=== PATIENT | male | born 1985 | race Caucasian/White ===

== ENCOUNTER 2023-12-27 04:03 | Day surgery (SDC) | payer OTHER ==
[2023-12-27] VITALS (213 sets, daily range): BP systolic 86–147; BP diastolic 43–99
[~2023-12-27] VITALS: Ht 175.3 cm; Wt 89.0 kg
--- NOTE | 2023-12-27 07:00 | NUR ---
Arrival & Pre-treatment Patient arrived to the [facility]R suite, identification and demographics confirmed. Patient to room 8, AAO, ambulatory, vitals obtained, ID/allergy/fall bands placed, changed into hospital gown, ROBERT hose, and non-slip socks. Procedure and timeline explained for treatment and discharge. All questions answered and the patient presents no concerns at this time.
[2023-12-27] MEDS ORDERED: LACTATED RINGER'S 1,000 ML IV PRN ×3 (07:30→19:00)
[2023-12-27] MEDS ORDERED: FAMOTIDINE 20 MG/TAB PO PRN (07:30)
[2023-12-27] MEDS ORDERED: ALBUTEROL SULFATE 2.5 MG VIAL IN PRN (07:30)
[2023-12-27] MEDS ORDERED: SCOPOLAMINE 1.5 MG DIS TD PRN (07:30)
[2023-12-27] MEDS ORDERED: CYANOCOBALAMIN 500 MCG/TAB ( B12) PO PRN (07:30)
[2023-12-27] MEDS ORDERED: cloNIDine HCL 0.1 MG/TAB PO PRN (07:30)
[2023-12-27] MEDS ORDERED: PANTOPRAZOLE SODIUM Sesquihydr 40 MG/TAB PO PRN (07:30)
[2023-12-27] MEDS ORDERED: diazePAM 5 MG/TAB PO PRN ×2 (07:30→08:30)
--- NOTE | 2023-12-27 07:45 | NUR ---
telephoned with patient intake information including usage, dose, last dose/time taken and initial vital signs. Patient history and allergies reviewed with MD. Orders received for 5+ 5 PRN mg PO Valium and 0.1 mg PO Clonidine now. Will reassess per protocol in 1.5 hours and update MD with assessment and vitals. Patient medicated per MD orders. In addition to Clonidine and Valium, patient received 1000 mcg B12 PO, 20 mg Pepcid PO, and Scopolamine TD patch. Medication indication and education provided prior to administration.
[2023-12-27] MEDS ORDERED: ASCORBIC ACID 4,000 MG in SODIUM CHLORIDE 0.9% 1,000 ML IV SCH (08:00)
[2023-12-27 08:44] LABS: BASO% 0.7 % (0-3); EOS% 5.7 % (0-8); HEMATOCRIT 47.6 % (39.0-50.0); HEMOGLOBIN 17.1 g/dl (14.0-18.0); IMMATURE GRANULOCYTES 0.5 % (0.0-5.0); LYMPH% 40.8 % (15-41); MEAN CORPUSCULAR HGB 30.5 pG CALC (26.0-32.0); MEAN CORPUSCULAR HGB CONC 35.9 g/dL CAL (32.0-36.0); MONO% 9.9 % (2-13); NEUT# 2.47 thou/uL (1.82-7.42); NEUT% 42.4 % (42-76); RED BLOOD COUNT 5.6 mill/uL (4.70-6.10); RED CELL DISTRI WIDTH 12.3 % (11.5-15.5)
[2023-12-27 08:58] LABS: ALBUMIN 4.3 g/dL (3.2-5.0); BILIRUBIN, TOTAL 0.6 mg/dL (0.2-1.3); CREATININE 0.9 mg/dL (0.7-1.3); POTASSIUM 4.6 mmol/l (3.5-5.1); TOTAL PROTEIN 7.3 g/dL (6.3-8.2)
[2023-12-27] MEDS ORDERED: ADVAIR DISK1 (09:08)
[2023-12-27] MEDS ORDERED: OMEPRAZOLE DR40 MG (09:09)
[2023-12-27] MEDS ORDERED: ADDERALL10 MG PO (09:09)
[2023-12-27] MEDS ORDERED: PROVENTIL0.083 % IN (09:10)
[2023-12-27] MEDS ORDERED: HYDROXYZ HCL10 MG PO (09:13)
[2023-12-27] MEDS ORDERED: ROCURONIUM BROMIDE 10 MG/ML 5ML VIAL IV PRN (09:25)
[2023-12-27] MEDS ORDERED: cloNIDine HCL 0.1 MG/TAB VT PRN (09:25)
[2023-12-27] MEDS ORDERED: DiphenhydrAMINE HCL 50 MG/ML SDV IV PRN (09:25)
[2023-12-27] MEDS ORDERED: MIDAZOLAM HCL 2 MG/2 ML VIAL IV PRN (09:25)
[2023-12-27] MEDS ORDERED: diazePAM 5 MG/TAB VT PRN (09:25)
[2023-12-27] MEDS ORDERED: MAGNESIUM SULFATE HEPTAHYDRATE 100 ML IV PRN (09:25)
[2023-12-27] MEDS ORDERED: ONDANSETRON HCl 4 MG/2 ML SDV IV PRN ×3 (09:25→19:00)
[2023-12-27] MEDS ORDERED: PROPOFOL 100 ML IV PRN (09:25)
[2023-12-27] MEDS ORDERED: cloNIDine HYDROCHLORIDE 100 MCG/ML 10 ML INJ IV PRN (09:25)
[2023-12-27] MEDS ORDERED: OCTREOTIDE ACETATE 100 MCG/VIAL SDV SC PRN (09:25)
[2023-12-27] MEDS ORDERED: LIDOCAINE HCL 1% (10MG/ML) 100 MG/10 ML MDV VT PRN ×2 (09:25)
[2023-12-27] MEDS ORDERED: STERILE WATER FOR IRRIGATION 1,000 ML BTL IR PRN (09:25)
[2023-12-27] MEDS ORDERED: DEXAMETHASONE SODIUM PHOSPHATE PF 10 MG/ML SDV IV PRN ×2 (09:25→19:00)
[2023-12-27] MEDS ORDERED: LIDOCAINE HCL 1% (10MG/ML) 100 MG/10 ML MDV IV PRN (09:25)
[2023-12-27] MEDS ORDERED: NALTREXONE HCL 50 MG/TAB VT PRN (09:25)
[2023-12-27] MEDS ORDERED: PROPOFOL 10 MG/ML 100ML VIAL IV PRN (09:25)
[2023-12-27] MEDS ORDERED: THIAMINE HCL 100 MG/ML 2ML VIAL IV PRN (09:25)
[2023-12-27] MEDS ORDERED: SUCCINYLCHOLINE CHLORIDE 20 MG/ML 10ML VIAL IV PRN (09:25)
--- NOTE | 2023-12-27 09:38 | NUR ---
Patients vital signs within pre-treatment parameters for 1.5 hour recheck. No indication for additional Valium or Clonidine as patient is resting comfortably and vital signs are within range.
--- NOTE | 2023-12-27 10:30 | NUR ---
Patient resting comfortably in bed. Easily aroused, maintains focus, and drifts back to sleep. No signs of active withdrawal or distress noted at this time. Continuous SPO2, rhythm, and respiratory monitoring initiated. IVF @ 250 mL/HR, room air, VSS.
--- NOTE | 2023-12-27 11:05 | NUR ---
Induction Note Patient to ANR procedure room. Time out performed at 1105. Patient placed on monitors, Douglas hugger, bilateral wrist restraints applied for ET tube protection. Versed 5mg given IV push at 1112 Tourniquet applied to RIGHT arm Lidocaine 100mg given [id number] IV push followed by Rocoronium 10mg at 1114 IV push and held for 90 seconds. Propofol bolus of 200mg given at 1116 IV push. Succinylcholine 100mg given IV push at 1117. Smooth intubation with 7.5 ETT. Positive CO2. Positive Auscultation for air exchange. Patient placed on ventilator for spontaneous ventilation. Placed on Propofol IV drip at 1118. OG inserted. Positive air on auscultation. Positive gastric content. Stomach washed at this time.
--- NOTE | 2023-12-27 11:30 | NUR ---
OG close note Stomach washed at this time. Naltrexone 50 mg with Clonidine 0.3 mg via OG tube. OG will be clamped for 45 minutes.
--- NOTE | 2023-12-27 12:15 | NUR ---
OG open note OG open at this time. Gastric content draining into drainage bag. OG to drain for 45 minutes. Propofol will be titrated down based on patient.
--- NOTE | 2023-12-27 13:00 | NUR ---
OG close note Stomach washed at this time. Naltrexone 50 mg with Clonidine 0.3 mg via OG tube. OG will be clamped for 45 minutes.
[2023-12-27] MEDS ORDERED: NALTREXONE50 MG PO (14:18)
[2023-12-27] MEDS ORDERED: KLONOPIN2 MG PO (14:19)
[2023-12-27] MEDS ORDERED: CLONIDINE0.1 MG PO (14:19)
--- NOTE | 2023-12-27 14:30 | NUR ---
OG close note Stomach washed at this time. Naltrexone 50 mg with Clonidine \0.1 mg via OG tube. OG will be clamped for 45 minutes.
--- NOTE | 2023-12-27 16:00 | NUR ---
WAITING NO CLOSE.
--- NOTE | 2023-12-27 16:30 | NUR ---
OG close note Stomach washed at this time. Naltrexone 0 mg with Clonidine 0.1 mg via OG tube. OG will be clamped for 30 minutes.
--- NOTE | 2023-12-27 17:15 | NUR ---
Extubation note Closing medications given Benadryl 50mg IV push, Decadron 10mg IV push,Magnesium 4 grams IV, Zofran 8mg IV push, Octreotide 100mcg SC. Stomach washed out prior to extubation. Suctioned gastric content. OG removed. Patient extubated. Propofol Discontinued. Wrist restraints removed. Douglas hugger Removed. See ANR Moderate sedate recovery record for further notes and assessment.
--- NOTE | 2023-12-27 18:00 | NUR ---
FAMILY MEMBER CONTACTED WITH PATIENT UPDATE. TRANSER NOTE Patient transferred to medical-surgical unit. Report given to receiving nurse at bedside. Treatment, medications, I/O, IV access reviewed with RN. All questions answered. IVF to continue at 100 ml/hr, NC @ 2L, no adventitious breath sounds. Safety precautions in place, bed locked and in lowest position, call light in reach.
--- NOTE | 2023-12-27 18:27 | NUR ---
patient arrived to ms @1825 patient resting in bed; 3l of 02; breathing unlabored; vitals stable; bedside report was given by Micah RN; patient semi rdz in bed; no s.s of distress; iv site clean and intact LR running @100 on RAC; call light within reach, personal items in ANR room; bed in lowest postion; bed alarm activated
[2023-12-27] MEDS ORDERED: KETOROLAC TROMETHAMINE 30 MG/ML SDV IV PRN (19:00)
[2023-12-27] MEDS ORDERED: LORazepam 2 MG/ML IV PRN ×2 (19:00)
[2023-12-27] MEDS ORDERED: HALOPERIDOL LACTATE 5 MG/ML SDV IV PRN (19:00)
[2023-12-27] MEDS ORDERED: ACETAMINOPHEN 500 MG TAB PO PRN (19:00)
[2023-12-27] MEDS ORDERED: ACETAMINOPHEN 1,000 MG/100 ML VIAL IV PRN (19:00)
[2023-12-27] MEDS ORDERED: PROMETHAZINE HCL 12.5 MG in SODIUM CHLORIDE 0.9% 50 ML IV PRN (19:00)
[2023-12-27] MEDS ORDERED: PROMETHAZINE HCL 25 MG in SODIUM CHLORIDE 0.9% 50 ML IV PRN (19:00)
--- NOTE | 2023-12-27 19:26 | NUR ---
RECEIVED REPORT FROM SCAR DAILEY. PT NOTED LAYING IN BED SEMI FOWLERS, PRESENTS VERY DROWSY AND DISORIENTED. TRYING TO CLIMB OUT OF BED AND PULL AT LINES, NOT ABLE TO FOLLOW COMMANDS. MEDICAITON ADMINSITERED PER EMAR FOR AGITATION. PT ON 3L ON NC, IV SITE IN LFA NO J-LOOP PRESENTS, WILL NEED TO ADD AND CHAGNE DSG. SECOND IV SITE APPEARS HEALTHY AND INTACT, FLUIDS RUNNING PER EMAR. NURSING ASSESSMENT COMPLETED. BED ALARM ON AND SAFETY PRECAUTIONS IN PLACE.
[2023-12-27] MEDS ORDERED: PATIENT' OWN MED CONTROLLED 1 EA DOSE IV PRN (21:00)
[2023-12-27] MEDS ORDERED: clonazePAM 1 MG/TAB PO PRN (23:00)
[2023-12-27] MEDS ORDERED: cloNIDine HCL 0.1 MG/TAB PO SCH (23:00)
--- NOTE | 2023-12-27 23:00 | NUR ---
PT RESTING NO DISTRESS NOTED ON EXAM. VS WNL ON RA LUNGS CLEAR. PT DROWSY BUT RESTLESS. ORAL FLUIDS PROVIDED. IV FLUIDS ONGOING WORKING PROPERLY. CALL LIGHT WITHIN REACH. PLAN OF CARE ONGOING.
[2023-12-28] MEDS ORDERED: cloNIDine HCL 0.1 MG/TAB PO PRN (04:00)
[2023-12-28] MEDS ORDERED: clonazePAM 1 MG/TAB PO PRN ×2 (04:00→08:00)
--- NOTE | 2023-12-28 04:00 | NUR ---
PT RESTLESS AND STATING HE HAS PAIN ON HIS LEGS. NURSE PROVIDED PAIN MEDICATION AND PRN MEDICATION TO HELP WITH RESTLESSNESS. VS WNL ON RA. PT USED URINAL BUT DID NOT GET UP DURING THE NIGHT. NO BM DURING THE NIGHT. CALL LIGHT WITHIN REACH. BED ALARM ON. PLAN OF CARE ONGOING. BOTH IV WORKING PROPERLY IV INFUSION ONGOING.
[2023-12-28 04:09] VITALS: BP 117/80
[2023-12-28 05:06] LABS: BASO% 0.2 % (0-3); EOS% 0.4 % (0-8); HEMATOCRIT 41.7 % (39.0-50.0); IMMATURE GRANULOCYTES 0.3 % (0.0-5.0); MEAN CELL VOLUME 82.7 fL CALC (80.0-100.0); MEAN CORPUSCULAR HGB CONC 36.2 g/dL CAL (32.0-36.0); MONO% 7.5 % (2-13); NEUT# 8.6 thou/uL (1.82-7.42); NEUT% 73.6 % (42-76); RED BLOOD COUNT 5.04 mill/uL (4.70-6.10); RED CELL DISTRI WIDTH 11.7 % (11.5-15.5)
[2023-12-28 05:11] LABS: ALBUMIN 3.6 g/dL (3.2-5.0); BILIRUBIN, TOTAL 0.8 mg/dL (0.2-1.3); CREATININE 0.8 mg/dL (0.7-1.3); MAGNESIUM 2.1 mg/dL (1.6-2.3); POTASSIUM 3.8 mmol/l (3.5-5.1); TOTAL PROTEIN 6.1 g/dL (6.3-8.2)
[2023-12-28 05:17] LABS: HEMOGLOBIN 15.1 g/dl (14.0-18.0)
--- NOTE | 2023-12-28 06:36 | NUR ---
PT SLEEPING NO DISTRESS NOTED EASILY AROUSABLE BREATHING NON LABORED. IV FLUIDS INFUSION ONGOING. BED ALARM ON. CALL LIGHT WITHIN REACH. PLAN OF CARE ONGOING.
--- NOTE | 2023-12-28 06:40 | NUR ---
Rounded on pt. NELLIE Hinson reports no incidents overnight. Pt is lying in bed with eyes closed. Labs drawn. Appropriate replacement ordered per protocol. All safety measures in place and functioning properly.
[2023-12-28] MEDS ORDERED: cloNIDine HCL 0.1 MG/TAB PO SCH (08:00)
[2023-12-28] MEDS ORDERED: ACETAMINOPHEN 325 MG/TAB PO SCH (08:00)
[2023-12-28] MEDS ORDERED: POTASSIUM CHLORIDE 20 MEQ/TAB PO SCH (08:00)
[2023-12-28] MEDS ORDERED: PANTOPRAZOLE SODIUM Sesquihydr 40 MG/TAB PO SCH (08:00)
[2023-12-28] MEDS ORDERED: NALTREXONE HCL 50 MG/TAB PO SCH (08:00)
[2023-12-28 08:03] VITALS: BP 122/87
--- NOTE | 2023-12-28 08:31 | NUR ---
patient a/o x3; room air; breathing unlabored and even; denied any pain; denied any n/d/v at this time; patient tolerated medication admin; patient tolerated breakfast; no s/s of distress at this time; iv site clean and intact running with LR @100; no complaints; call light within reach,verbalized undertsanding on how to use, personal items within reach, bed in lowest postion; bed in lowest postion; bed actaivted
[2023-12-28] MEDS ORDERED: ACETAMINOPHEN 500 MG TAB PO PRN (09:00)
[2023-12-28] MEDS ORDERED: Cholecalciferol 2,000 UNIT/TAB PO PRN (09:00)
[2023-12-28] MEDS ORDERED: MAGNESIUM OXIDE 400 MG/TAB PO PRN (09:00)
--- NOTE | 2023-12-28 11:14 | NUR ---
check on patinet; patient stable; no s/s of withdrawls at this time; no complaints at this time; no complaints
--- NOTE | 2023-12-28 12:00 | NUR ---
patient a/o x3; room air; breathing unlabored and even; denied any pain; denied any n/d/v at this time; no s.s of distress at this time; no s/s of withdrwals; iv site clean and intact running with LR@100; patient tolerated his lunch with noissues; peronal items in ANR locker; call light within reach,verbalized understanding on how to use, bed in lowest postion; patient tolerated shower with no issues, stand by assit
--- NOTE | 2023-12-28 14:46 | NUR ---
Using S-A-S-H technique, cath flushed per protocol. Flushes easily with immediate blood return. Discharged from unit in stable condition. Discharge instructions given. Patient verbalizes understanding of same. Discharged in stable condition via Ambulatory to Home with family. All belongings sent with pt. completed discharge with patient and father, reviewed his instructions, answered any questions that they had as well as reviewed medications with patiluana and father
== END 2023-12-28 14:35 | disposition home or self-care (01) | DRG 897 ==
LOC: ANR 04:03 → MS2 04:03 → ANR 08:00
PROVIDERS: ATTEND Anesthesiology Critical Care Medicine
DX: F11.20 Opioid dependence, uncomplicated (principal)
CPT/HCPCS: J1100; J2060; J2354; J3475; J3490